=== PATIENT | female | born 1985 | race Caucasian/White ===

== ENCOUNTER 2023-03-21 18:17 | Emergency (ER) | payer MEDICAID, SELFPAY ==
[2023-03-21 18:35] VITALS: BP 159/80; PULSE 101; RESP 18; TEMP 36.5; O2SAT 100; BMI 19.4
--- NOTE | 2023-03-21 20:07 | ED_ITS ---
HPI - General Adult General Date Seen: 03/21/23 Chief complaint: Eye Problems Stated complaint: Irritation in R eye Time Seen by Provider: 03/21/23 19:55 Source: patient Mode of arrival: ambulatory Limitations: no limitations History of Present Illness HPI narrative: Patient is a 37-year-old who has redness and irritation of her right eye. On Monday night she was out and thought she got something in her eye, maybe a piece of glitter, and she just feels like she has not been able to get out. She says she has been rubbing at it, used a tissue, she can not see anything in the eye but it just feels like something is in there. No vision complaints, photophobia, eye was somewhat mattery this morning. She is not were contact lenses. Last tetanus within 5 years. General health is good. Related Data Home Medications Medication Instructions Recorded Confirmed No Known Home Medications 03/21/23 03/21/23 Allergies Allergy/AdvReac Type Severity Reaction Status Date / Time No Known Drug Allergies Allergy Verified 03/21/23 18:34 Review of Systems Status of ROS: Reports: 6 or more systems reviewed and unremarkable except as noted in History and below Exam Narrative: Exam Narrative: Vital signs reviewed In general, alert, nontoxic woman. Eyes: The right eye is notable for injected conjunctiva. Pupils equal and reactive. No visible foreign body on initial exam including under lids. Extraocular movements are full. ENT: Remainder of face is normal, no congestion, erythema, trauma. Const: Vital Signs, click to edit/add: Vital Signs - 24 hr 03/21/23 18:35 Temperature 97.7 F Pulse Rate [Pulse Oximeter] 101 H Respiratory Rate 18 Blood Pressure [Ri ght Upper Arm] 159/80 H Pulse Oximetry 100 Oxygen Delivery Me thod Room Air Documenting provider has reviewed patient's vital signs: yes Course Course ED Course: With fluorescein, I am able to visualize a small corneal abrasion at about 7:00 a.m. over the iris. I do not see any foreign body with magnification. Discussed I think this represents corneal abrasion, will prescribe some tobramy kirti drops. At this time no symptoms suggestive of iritis or more significant infection. Did discuss that these typically heal pretty quickly so if she is not feeling improved in the next 24 hours would like her to be seen by an eye doctor for recheck. If at any time she develops photophobia, severe eye pain, difficulty with vision etcetera she should be seen more urgently by an eye doctor. Vital Signs Vital signs: Initial Vital Signs Temperature 97.7 F 03/21/23 18:35 Temperature Source Temporal Artery Scan 03/21/23 18:35 Pulse Rate 101 H 03/21/23 18:35 Respiratory Rate 18 03/21/23 18:35 Blood Pressure 159/80 H 03/21/23 18:35 Blood Pressure Mean 106 H 03/21/23 18:35 Blood Pressure Position Sitting 03/21/23 18:35 Pulse Oximetry 100 03/21/23 18:35 Oxygen Delivery Method Room Air 03/21/23 18:35 Vital Signs Temperature 97.7 F 03/21/23 18:35 Pulse Rate 101 H 03/21/23 18:35 Respiratory Rate 18 03/21/23 18:35 Blood Pressure 159/80 H 03/21/23 18:35 Pulse Oximetry 100 03/21/23 18:35 Oxygen Delivery Method Room Air 03/21/23 18:35 Temperature 97.7 F 03/21/23 18:35 Pulse Rate 101 H 03/21/23 18:35 Respiratory Rate 18 03/21/23 18:35 Blood Pressure 159/80 H 03/21/23 18:35 Pulse Oximetry 100 03/21/23 18:35 Oxygen Delivery Method Room Air 03/21/23 18:35 Discharge Plan Discharge Clinical Impression: Corneal abrasion Patient Disposition: Home, Self-Care Condition: Stable Instructions: Corneal Abrasion (DC) Additional Instructions: Antibiotic drops as prescribed. If you are not feeling improved in 24 hours, follow up with an eye doctor for re-evaluation. If at any time he develops severe pain, severe light sensitivity, problems with vision, you should be seen more urgently with an eye clinic. Prescriptions: No Action No Known Home Medications Follow Up/Referrals: Reinier Oreilly MD [Primary Care Provider] - Stand Alone Forms: [employer] Info Instructions
[2023-03-21 20:36] VITALS: BP 135/74; PULSE 89; RESP 18; TEMP 36.5; O2SAT 100
[2023-03-21 20:54] VITALS: BP 135/74; PULSE 89; RESP 18; TEMP 36.5
== END 2023-03-21 20:55 | disposition home or self-care (01) ==
PROVIDERS: Emergency Provider Emergency Medicine; PCP Family Medicine
DX: S05.01XA Injury of conjunctiva and corneal abrasion without foreign body, right eye, initial encounter (principal)
CPT/HCPCS: 99283; 99284; A9270